=== PATIENT | female | born 1960 | race Caucasian/White ===

== ENCOUNTER → 2017-02-17 | Outpatient (CLI) | payer SELFPAY ==
[2015-01-10 20:19] VITALS: BP 100/52
[~2017-02-17] MED LIST: PREMARIN1.25 M1 PO
== END ==
LOC: MAMMO 12:56 → RAD 12:56
DX: Z12.31 Encounter for screening mammogram for malignant neoplasm of breast (principal)
CPT/HCPCS: G0202

== ENCOUNTER → 2018-12-06 | Outpatient (CLI) | payer SELFPAY ==
[2015-01-10 20:19] VITALS: BP 100/52
== END ==
LOC: MAMMO 10:45
DX: Z12.31 Encounter for screening mammogram for malignant neoplasm of breast (principal)

== ENCOUNTER → 2018-12-15 | Outpatient (CLI) | payer SELFPAY ==
[2015-01-10 20:19] VITALS: BP 100/52
== END ==
LOC: MAMMO 12:15
DX: R92.2 Inconclusive mammogram (principal)

== ENCOUNTER → 2020-04-10 | Outpatient (CLI) | payer SELFPAY ==
[2015-01-10 20:19] VITALS: BP 100/52
== END ==
LOC: MAMMO 09:12
DX: Z12.31 Encounter for screening mammogram for malignant neoplasm of breast (principal)